=== PATIENT | male | born 1945 | race Caucasian/White ===

== ENCOUNTER 2024-12-13 08:58 | Emergency (ER) | payer MEDICARE, SELFPAY ==
[2024-12-13 08:59] VITALS: BP 164/73
--- NOTE | 2024-12-13 09:51 | ED.GENMED ---
History of Present Illness
General
Chief Complaint: Skin Surface Trauma
Source: patient
Exam Limitations: none
Time Seen by Provider: 12/13/24 09:25
Nursing documentation reviewed up to this point in time: agreed with
History of Present Illness
History of Present Illness:
Patient is a 79-year-old male who presents with laceration to left middle finger. He reports on 3 days ago he was using a joint turn for carpentry and cut the tip of the skin to his left middle finger. He reports it has been
intermittently oozing since. He complains of mild burning with denies any actual pain. He is unsure his last tetanus. He is right-hand dominant. Denies any redness swelling fever chills
Past History
Past History
ED Past Medical History: None
ED Past Surgical History: None
Social History
Living: with family
Employment: Employed
Phy Exam
General Physical Exam
General Presentation: no apparent distress
General age: appears stated age
General Skin: warm and dry
General Habitus: normal
General Mental: alert
General Hydration: appears well hydrated
Neurological Exam
Neurological Exam: alert and oriented x3
Musculoskeletal Exam
Musculoskeletal Exam: full ROM and other (Left lower extremity strong pulses left middle finger with small 1 cm skin avulsion to the distal phalanx region no bony tenderness oozing of blood normal cap refill normal distal sensation normal flexion
extension of finger no swelling, no)
Skin Exam
Skin Exam: normal color and warm/dry
Psychiatric Exam
Psychiatric Exam: normal mood/affect
Course
Orders/Labs/Results
Orders:
Orders
12/13/24 09:49
Tetanus/Diphth/Acelpertussis [Adacel] 0.5 ml IM .ONCE ONE
Vital Signs
Initial and Last Documented VS:
Initial Vital Signs
Temp Pulse Resp BP Pulse Ox
97.7 F 64 18 164/73 99
08/02/25 08:59 12/13/24 08:59 12/13/24 08:59 12/13/24 08:59 12/13/24 08:59
Last Documented Vital Signs
Temp Pulse Resp BP Pulse Ox
97.7 F 64 18 164/73 99
12/13/24 08:59 12/13/24 08:59 12/13/24 08:59 12/13/24 08:59 12/13/24 08:59
Procedures
Other
Indication for procedure:: skin avulsion to left middle finger
Procedure completed by: myself
Additional Procedure:
Patient has a small skin avulsion to left distal phalanx middle finger oozing of blood irrigated with copious adrian normal saline and Gelfoam applied bleeding resolved cover with sterile
MDM/Problems Addressed
Differential Diagnosis Includes:
Not limited to skin avulsion laceration no
MDM/Problems Addressed:
No bony tenderness small avulsion to the left middle finger oozing of blood this happened 2 days ago. No evidence infection ; wound was irrigated with copious adrian normal saline ;Gelfoam was applied and no further bleeding tetanus updated wound
care reviewed.
*Pulse Oximetry
SaO2: 99
Oxygen Mode of Delivery: Room air
Patient hypoxic: no
*Critical Care Note
Total Time (30-74mins, 75-104mins- exclusive of procedures): Not Applicable
ED Attending Note
-
Portions of this chart may have been created with voice recognition software.� Occasional wrong word or��sound alike� substitutions may have occurred due to the inherent limitations of voice recognition software.
Discharge Plan
Departure
Patient Disposition: Home (Routine Discharge)
Date of Disposition: 12/13/24
Time of Disposition: 09:55
Patient with high blood pressure during this ER visit?: Yes
Condition: Fair
Covid-19: Not Applicable
Discharge Problem:
Avulsion of skin
Instructions: Wound Care (DC), BLOOD PRESSURE
Prescriptions:
No Action
aspirin 325 MG tablet
650 mg PO HS
Patient Comments:
Pt. stated takes 2 regular strength Aspirin every night for past 5 days
Activity Restrictions/Additional Instructions:
Keep wound clean and dry for 24 hours after 24 hours you may remove the outer dressing but do not remove the Gelfoam. This will fall off on its own. Keep covered. Check for signs of infection, redness swelling drainage fever chills. See family
doctor in the next 2 to 3 days for reevaluation return if any worsening of symptoms. While you were here your tetanus vaccine was updated
Interventions
Interventions:
*Risk Screen - Suicide Last Done: 12/13/24 08:59
*General Assessment Last Done: 12/13/24 08:59
*Neglect/Abuse Screening Last Done: 12/13/24 08:59
Discharge Date and Time
Print Language: OMANI
[2024-12-13] MEDS: ADACEL 0.5 ML IM (10:08)
== END 2024-12-13 10:15 | disposition home or self-care (01) ==
LOC: EMR 08:58
PROVIDERS: EMERGENCY PHYSICIAN Emergency Medicine; FAMILY PHYSICIAN Family Medicine
DX: S61.213A Laceration without foreign body of left middle finger without damage to nail, initial encounter (principal); W45.8XXA Other foreign body or object entering through skin, initial encounter; Z23 Encounter for immunization
CPT/HCPCS: 99282; 12001; 90471; 90715